=== PATIENT | female | born 1935 | race Caucasian/White ===

== ENCOUNTER 2016-06-28 20:30 | Inpatient (IN) | payer MEDICARE ==
[2016-06-28] MEDS ORDERED: Albuterol/Ipratropium Neb 3 ML NEB NEB ONE (20:40)
[2016-06-28] MEDS ORDERED: LORAZEPAM 2 MG/ML VIAL IV ONE (20:40)
[2016-06-28 21:03] LABS: ALLEN'S TEST PASS; BEb -2.1 (+/- 2); TCO2 27.4 MMOL/L (23-27)
[2016-06-28 21:04] LABS: ABG Draw Site Right Radial
[2016-06-28] MEDS ORDERED: DILTIAZEM 25 MG/5 ML VIAL IV ONE (21:19)
--- NOTE | 2016-06-28 21:19 | EDPRACDOC ---
- General Information Stated Complaint: RESP.DISTRESS Time Seen by Provider: 06/28/16 20:38 Home Medications: Home Medications Acetaminophen Ex Str Tablet [TYLENOL EXTRA STRENGTH Tablet] 500 mg PO Q4H PRN Donepezil HCl [Aricept] 20 mg PO HS 03/13/14 Mirtazapine [Remeron] 30 mg PO HS 03/13/14 Loperamide HCl [Imodium] 2 mg PO .UP TO 6 DOSES/24H PRN 08/26/14 Potassium Chloride [Klor-Con M20] 20 meq PO DAILY 08/26/14 Doxepin HCl [Sinequan] 50 mg PO HS 09/02/14 Furosemide [Lasix] 20 mg PO QAM 09/02/14 Tramadol HCl [Ultram] 50 mg PO BID PRN #60 tablet 09/05/14 Diltiazem HCl [Cardizem Cd] 120 mg PO DAILY 04/10/15 Fluticasone/Vilanterol [Breo Ellipta 100-25 Mcg INH] 1 puff INH DAILY 07/24/15 Trazodone HCl 50 mg PO HS 07/24/15 Artificial Tears 1 drop OU QID 11/13/15 Cetirizine HCl 10 mg PO DAILY 11/13/15 Glipizide 5 mg PO BID 11/13/15 Trolamine Salicylate/Aloe Vera [Aspercreme 10% Cream] 1 gm TOP TID PRN 11/13/15 Ascorbic Acid [Vitamin C] 500 mg PO DAILY 02/25/16 Atorvastatin Calcium [Lipitor] 10 mg PO HS 02/25/16 Calcium Polycarbophil 1,250 mg PO BID 02/25/16 Canagliflozin/Metformin HCl [Invokamet 50-500 mg Tablet] 1 tab PO BID 02/25/16 Cholecalciferol (Vitamin D3) [Vitamin D3] 2,000 unit PO DAILY 02/25/16 Ferrous Sulfate [Feosol] 325 mg PO BID 02/25/16 Fluoxetine HCl [Prozac] 10 mg PO 1800 02/25/16 Guaifenesin/D-Methorphan Hb/PE [Robafen Cf Liquid] 5 ml PO TID PRN 02/25/16 Liraglutide [Victoza 18 mg/3 ml Pen] 0.3 ml SQ DAILY@0800 02/25/16 Magnesium Hydroxide [Milk of Magnesia] 30 ml PO DAILY PRN 02/25/16 Metoprolol Tartrate [Lopressor] 50 mg PO BID 02/25/16 Omeprazole 20 mg PO DAILY 02/25/16 Equalactin 1,250 mg PO BID 06/28/16 Gabapentin 100 mg PO BID 06/28/16 Warfarin Sodium [Coumadin] 3.5 mg PO 1800 06/28/16 Allergies/Adverse Reactions: Allergies Allergy/AdvReac Type Severity Reaction Status Date / Time lisinopril [From Prinivil] Allergy Severe ANGIOEDEMA Verified 02/25/16 13:05 Sulfa (Sulfonamide Allergy Severe RASH Verified 02/25/16 13:05 Antibiotics) niacin Allergy See Verified 02/25/16 13:05 Comments - History of Present Illness Onset: 4 HOURS AGO Shortness of Breath: Severe Relevant History: Reports: COPD, Heart Failure (CHF) Cough: Reports: Non-productive SOB Worsens with: Reports: Nothing SOB Improves with: Reports: Other (NRB ) Other History: EMS ARRIVAL SO2 78% RA. PLACED ON NRB AND TRANSPORTED. HR 120-135 AF. ED Past Medical History - History Reviewed Yes Nurses notes reviewed and agree except as marked - Patient Medical History Neurological History: Reports: Dementia Cardiac History: Reports: Atrial Fibrillation, Hypertension, Congestive Heart Failure, Hypercholesterolemia, Valvular Heart Disease (Mild mitral regurgitation and mild aortic stenosis), Syncope. Denies: Cardiomyopathy (NL EF ) Respiratory History: Reports: COPD GI/ History: Reports: Renal Failure, Gastroesophageal Reflux, Diverticulosis Musculoskeletal History: Reports: Arthritis Psychological History: Reports: Depression. Denies: Substance Use Disorder Systemic History: Reports: Anemia, Diabetes (Type 2). Denies: Cancer Surgical History: Reports: Hysterectomy - Family Medical History Reports: Hypertension, Diabetes, Stroke (father), Cardiac Disorders (mother). Denies: Cancer - Social Medical History Smoking Status: Former smoker Social History: Denies: Substance Use Disorder EDM Review of Systems - Review of Systems ROS Negative Except as Marked: Yes All systems reviewed and were negative except as marked ROS Unobtainable: Yes Review of systems cannot be obtained due to the patient's medical condition - Physical Exam Constitutional: Alert, Restless, Other (PANIC, OBESE). negative: Well nourished , Well appearing Oriented to: Time, Person, Place Last recorded Vital Signs: Oxygen Pulse Oxygen Saturation O2 Device Oxygen Flow Rate Fraction of Inspired Oxygen ( FIO2) - HEENT Head: Normal Oropharynx: Normal Neck: Normal. negative: Limited ROM, Lymphadenopathy, Meningeal Signs - Respiratory/Cardiovascular Respiratory: Accessory Muscle Use, Rales, Tachypnea, Other (TRIPOD) Cardiovascular: Tachycardia, Irregular. negative: Diastolic murmur, Systolic murmur - GI Auscultation: Normal Palpation: Normal Tenderness: Non tender - Bladder: Normal - Musculoskeletal Back: Normal Extremities: Normal - Integumentary Skin: Warm, Diaphoretic - Neurologic Memory Impaired: Normal (GROSSLY NORMAL) Motor Function: Other (MOVES ALL 4 EXT) Mood Description: Anxious Thought: Coherent ED SOB MDM - Re-evaluation Re-evaluation 1 Re-evaluation Time: 21:22 (COMFORTABLE ON BIPAP) Re-evaluation 3 Re-evaluation Time: 22:42 (HR 76, DILT GTT OFF. PT COMFORTABLE, NL RESP EFFORT, MILD RALES) - Results Result Diagrams: 06/28/16 21:01 06/28/16 21:01 Results: Puncture Site Right radial 06/28/16 20:55 pH 7.270 pH UNITS (7.35-7.45) L 06/28/16 20:55 pCO2 56.0 mmHg (35-45) H 06/28/16 20:55 pO2 63.0 mmHg (80-100) L 06/28/16 20:55 HCO3 25.7 MMOL/L (22-26) 06/28/16 20:55 Total CO2 27.4 MMOL/L (23-27) H 06/28/16 20:55 Base Excess -2.1 (+/- 2) L 06/28/16 20:55 FiO2 % 100 06/28/16 20:55 Specimen Drawn By kaytr 06/28/16 20:55 Lab Results 06/28/16 20:55 Puncture Site Right radial pH 7.270 L pCO2 56.0 H pO2 63.0 L HCO3 25.7 Total CO2 27.4 H Base Excess -2.1 L FiO2 % 100 Specimen Drawn By kaytr - EKG EKG #1 EKG Time: 20:55 -: Yes EKG interpreted by me Rate: bpm: 131 Mcdowell: Normal Rhythm: Afib Block: None Hypertrophy: None ST: Nonsp - Diagnostic Imaging Chest Image interpreted by: Radiologist Diagnostic Imaging Comments: Patient Name: POP FISCHER LOC: ED : 1935 AGE: 80 Order Date:06/28/16 Date of Service:11/06 Report # [id number] Ord Physician: Dorothea Mcwilliams MD Exam # [id number] Emergency Physician: Dorothea Mcwilliams MD Exam(s): [id number] RAD/DG CHEST PORTABLE CLINICAL DATA: Acute onset of shortness of breath. Syncope. Sepsis. Initial encounter. EXAM: PORTABLE CHEST 1 VIEW COMPARISON: Chest radiograph performed 02/25/2016 FINDINGS: The lungs are well-aerated. Vascular congestion is noted. Increased interstitial markings raise concern for pulmonary edema, though pneumonia might have a similar appearance given the patient's symptoms. No definite pleural effusion or pneumothorax is seen. The cardiomediastinal silhouette is borderline enlarged. No acute osseous abnormalities are identified. IMPRESSION: Vascular congestion and borderline cardiomegaly. Increased interstitial markings raise concern for pulmonary edema, though pneumonia might have a similar appearance given the patient's symptoms. Electronically Signed By: Manan Yanes M.D. On: 06/28/2016 21:36 Electronically Signed By: Manan Yanes MD Electronically Signed Date/Time: Dictate Date/Time: 06/28/162134 Technologist: Marly Daigle Transcribed By: Fani Transcribed Date/Time: 06/28/162135 ED Critical Care Note - Critical Care Note Total Time (mins): 35 Comments: Due to the presence of and / or the risk of deterioration, my attendance to this patient required critical care time, including assessment/reassessment, documentation, ordering and interpreting ancillary studies, discussion with ED staff and consultants,patient and family, and excludes time spent on separately billable procedures. - Departure Disposition: Admit IP To This Hospital Final Diagnosis: Atrial fibrillation with rapid ventricular response, Acute respiratory failure with hypoxia and hypercarbia Instructions: A-fib (Atrial Fibrillation) (ED) Education/Counseling Given To: Patient, Family Member Education/Counseling Given Regarding: Diagnosis, Treatment Referrals: None,No Provider [NonStaff] - One Week Prescriptions: No Action Donepezil HCl [Aricept] 20 mg PO HS Acetaminophen Ex Str Tablet [TYLENOL EXTRA STRENGTH Tablet] 500 mg PO Q4H PRN PRN Reason: Pain Mirtazapine [Remeron] 30 mg PO HS Loperamide HCl [Imodium] 2 mg PO .UP TO 6 DOSES/24H PRN PRN Reason: Loose Stool Potassium Chloride [Klor-Con M20] 20 meq PO DAILY Doxepin HCl [Sinequan] 50 mg PO HS Furosemide [Lasix] 20 mg PO QAM Tramadol HCl [Ultram] 50 mg PO BID PRN #60 tablet PRN Reason: Pain Diltiazem HCl [Cardizem Cd] 120 mg PO DAILY Fluticasone/Vilanterol [Breo Ellipta 100-25 Mcg INH] 1 puff INH DAILY Trazodone HCl 50 mg PO HS Trolamine Salicylate/Aloe Vera [Aspercreme 10% Cream] 1 gm TOP TID PRN PRN Reason: NECK PAIN Cetirizine HCl 10 mg PO DAILY Artificial Tears 1 drop OU QID Glipizide 5 mg PO BID Magnesium Hydroxide [Milk of Magnesia] 30 ml PO DAILY PRN PRN Reason: Constipation Metoprolol Tartrate [Lopressor] 50 mg PO BID Canagliflozin/Metformin HCl [Invokamet 50-500 mg Tablet] 1 tab PO BID Ferrous Sulfate [Feosol] 325 mg PO BID Calcium Polycarbophil 1,250 mg PO BID Liraglutide [Victoza 18 mg/3 ml Pen] 0.3 ml SQ DAILY@0800 Cholecalciferol (Vitamin D3) [Vitamin D3] 2,000 unit PO DAILY Ascorbic Acid [Vitamin C] 500 mg PO DAILY Omeprazole 20 mg PO DAILY Fluoxetine HCl [Prozac] 10 mg PO 1800 Atorvastatin Calcium [Lipitor] 10 mg PO HS Guaifenesin/D-Methorphan Hb/PE [Robafen Cf Liquid] 5 ml PO TID PRN PRN Reason: Cough Gabapentin 100 mg PO BID Warfarin Sodium [Coumadin] 3.5 mg PO 1800 Equalactin 1,250 mg PO BID Forms: ED Discharge Instructions Decision to Admit Time: 22:41 Decision to admit date: 06/28/16 Decision to admit: from ED - Physician Consulted Hospitalist Time Called: 22:42 Provider Called: Kurtis Richardson Time Credit Review Manager Returned Call: 22:42
[2016-06-28 21:30] LABS: BLOOD UREA NITROGEN 18 MG/DL (7-17); CALCIUM 9.4 MG/DL (8.4-10.2); CALCULATED OSMOLALITY 275 MOs/Kg (270-290); CHLORIDE 103 mEq/L (98-107); CPK TOTAL WITH POSSIBLE MB 68 IU/L (30-134); GLUCOSE 176 mg/dL (70-99); SODIUM LEVEL 140 mEq/L (137-146); TOTAL PROTEIN 8.3 G/DL (6.3-8.2)
[2016-06-28 21:34] LABS: PT-INR 1.8
[2016-06-28 21:36] LABS: LEUKOCYTES/URINE NEG (NEGATIVE); NITRITE/URINE NEG (NEGATIVE); URINE OCCULT BLOOD NEG (NEG/TRACE)
[2016-06-28 21:38] LABS: AUTOMATED BASOPHIL 0.3 % (0-2); AUTOMATED EOSINOPHIL 1.4 % (0-5); AUTOMATED LYMPH 16.4 % (17-44); AUTOMATED MONOCYTE 7.6 % (3-10); AUTOMATED NEUTROPHIL 74.3 % (45-76); MPV 8.2 fL (7.4-10.4)
--- NOTE | 2016-06-28 21:38 | DIRPT ---
CLINICAL DATA: Acute onset of shortness of breath. Syncope. Sepsis. Initial encounter. EXAM: PORTABLE CHEST 1 VIEW COMPARISON: Chest radiograph performed 02/25/2016 FINDINGS: The lungs are well-aerated. Vascular congestion is noted. Increased interstitial markings raise concern for pulmonary edema, though pneumonia might have a similar appearance given the patient's symptoms. No definite pleural effusion or pneumothorax is seen. The cardiomediastinal silhouette is borderline enlarged. No acute osseous abnormalities are identified. IMPRESSION: Vascular congestion and borderline cardiomegaly. Increased interstitial markings raise concern for pulmonary edema, though pneumonia might have a similar appearance given the patient's symptoms. Electronically Signed By: Manan Yanes M.D. On: 06/28/2016 21:36
[2016-06-28] MEDS ORDERED: Diltiazem HCl 100 MG in D5W 100 ML IV SCH (22:00)
[2016-06-28] MEDS ORDERED: NITROGLYCERINE 2 % OINTMENT PACK TOP ONE (22:21)
[2016-06-28] MEDS ORDERED: [UNRECOGNIZED DRUG - OTHER] TOP PRN (22:57)
[2016-06-28] MEDS ORDERED: TROLAMINE SALICYLATE TOP PRN (22:57)
[2016-06-28] MEDS ORDERED: ALOE VERA TOP PRN (22:57)
[2016-06-28] MEDS ORDERED: ARTIFICIAL TEARS OPH SOLN 15 ML OU SCH (23:00)
[2016-06-28] MEDS ORDERED: ONDANSETRON HCL 4 MG/2 ML VIAL IV PRN (23:00)
[2016-06-28] MEDS ORDERED: ALBUTEROL 0.083% 3 ML NEB NEB PRN (23:01)
[2016-06-28] MEDS ORDERED: GLUCOSE (ORAL GEL) 15 GM TUBE PO PRN (23:01)
[2016-06-28] MEDS ORDERED: GLUCAGON 1 MG VIAL SQ PRN (23:01)
[2016-06-28] MEDS ORDERED: DEXTROSE 25 GM/50 ML PFS IV PRN (23:01)
--- NOTE | 2016-06-28 23:07 | HISTPHYS ---
- Chief Complaint Shortness of breath - History of Present Illness This is a 72-year-old female with history of Alzheimer's disease, atrial fibrillation, diabetes and heart failure who was being admitted to the hospital [facility] due to significant hypoxic respiratory failure. History is taken from the patient's daughter, as the patient is demented and somnolent at this time. Patient's daughter tells me that she has been short of breath for the last several days, though she constantly has complaints of chest pain, shortness of breath. This afternoon, she pulled the alarm at her assisted living facility complaining of shortness of breath, and difficulty catching her breath. Per the daughter who saw her when she 1st arrived at the emergency department, she was really gasping for air and going for air. She seems to have gained a small amount of fluid with some lower extremity edema over the last few days. Patient often complains of chest pain, is not very reliable but for the last few days has not been complaining of chest pain. S were the daughter knows, she has not had any chest pain, nausea, vomiting, fevers or chills, no abdominal pain complaints or changes in bowel or bladder habits. No sick contacts or changes in her medications. - Medical History Cardiac History: Reports: Atrial Fibrillation, Hypertension, Congestive Heart Failure, Hypercholesterolemia, Valvular Heart Disease (Mild mitral regurgitation and mild aortic stenosis), Syncope. Denies: Cardiomyopathy (NL EF ) Respiratory History: Reports: COPD GI/ History: Reports: Renal Failure, Gastroesophageal Reflux, Diverticulosis Musculoskeletal History: Reports: Arthritis Systemic History: Reports: Anemia, Diabetes (Type 2). Denies: Cancer Neurological History: Reports: Dementia Psychological History: Reports: Depression. Denies: Substance Use Disorder - Surgical History Reports: Hysterectomy - Medictions/Allergies Allergies lisinopril [From Prinivil] Allergy (Severe, Verified 02/25/16 13:05) ANGIOEDEMA Sulfa (Sulfonamide Antibiotics) Allergy (Severe, Verified 02/25/16 13:05) RASH niacin Allergy (Verified 02/25/16 13:05) See Comments per facility mar Home Medications Acetaminophen Ex Str Tablet [TYLENOL EXTRA STRENGTH Tablet] 500 mg PO Q4H PRN Donepezil HCl [Aricept] 20 mg PO HS 03/13/14 Mirtazapine [Remeron] 30 mg PO HS 03/13/14 Loperamide HCl [Imodium] 2 mg PO .UP TO 6 DOSES/24H PRN 08/26/14 Potassium Chloride [Klor-Con M20] 20 meq PO DAILY 08/26/14 Doxepin HCl [Sinequan] 50 mg PO HS 09/02/14 Furosemide [Lasix] 20 mg PO QAM 09/02/14 Tramadol HCl [Ultram] 50 mg PO BID PRN #60 tablet 09/05/14 Diltiazem HCl [Cardizem Cd] 120 mg PO DAILY 04/10/15 Fluticasone/Vilanterol [Breo Ellipta 100-25 Mcg INH] 1 puff INH DAILY 07/24/15 Trazodone HCl 50 mg PO HS 07/24/15 Artificial Tears 1 drop OU QID 11/13/15 Cetirizine HCl 10 mg PO DAILY 11/13/15 Glipizide 5 mg PO BID 11/13/15 Trolamine Salicylate/Aloe Vera [Aspercreme 10% Cream] 1 gm TOP TID PRN 11/13/15 Ascorbic Acid [Vitamin C] 500 mg PO DAILY 02/25/16 Atorvastatin Calcium [Lipitor] 10 mg PO HS 02/25/16 Calcium Polycarbophil 1,250 mg PO BID 02/25/16 Canagliflozin/Metformin HCl [Invokamet 50-500 mg Tablet] 1 tab PO BID 02/25/16 Cholecalciferol (Vitamin D3) [Vitamin D3] 2,000 unit PO DAILY 02/25/16 Ferrous Sulfate [Feosol] 325 mg PO BID 02/25/16 Fluoxetine HCl [Prozac] 10 mg PO 1800 02/25/16 Guaifenesin/D-Methorphan Hb/PE [Robafen Cf Liquid] 5 ml PO TID PRN 02/25/16 Liraglutide [Victoza 18 mg/3 ml Pen] 0.3 ml SQ DAILY@0800 02/25/16 Magnesium Hydroxide [Milk of Magnesia] 30 ml PO DAILY PRN 02/25/16 Metoprolol Tartrate [Lopressor] 50 mg PO BID 02/25/16 Omeprazole 20 mg PO DAILY 02/25/16 Equalactin 1,250 mg PO BID 06/28/16 Gabapentin 100 mg PO BID 06/28/16 Warfarin Sodium [Coumadin] 3.5 mg PO 1800 06/28/16 - Family History Reports: Hypertension, Diabetes, Stroke (father), Cardiac Disorders (mother). Denies: Cancer - Social History Smoking Status: Former smoker Social History: Denies: Substance Use Disorder - Review of Systems Yes Review of systems cannot be obtained due to the patient's medical condition - Physical Exam Vital Signs: Initial Vitals Temperature 98.9 F 06/28/16 20:30 Pulse Rate 123 H 06/28/16 20:30 Respiratory Rate 26 H 06/28/16 20:30 Blood Pressure 119/61 06/28/16 20:30 Pulse Oxygen Saturation 91 06/28/16 20:30 - Focused CV Perfusion Exam Vital Signs: Last Vital Signs Temp 98.9 F 06/28/16 20:30 Pulse 95 06/28/16 22:01 Resp 20 06/28/16 22:01 BP 117/72 06/28/16 22:01 Pulse Ox 96 06/28/16 22:01 - Lab Results Laboratory Tests 06/28/16 06/28/16 06/28/16 20:55 21:01 21:01 WBC 12.8 H Hgb 15.5 Hct 47.6 H Plt Count 217 INR pH 7.270 L pCO2 56.0 H pO2 63.0 L Potassium 4.3 BUN 18 H Creatinine 1.00 AST 40 H Troponin I < 0.01 [id number]-P-Taojkqvzbto Pept 2900 H 06/28/16 21:01 WBC Hgb Hct Plt Count INR 1.8 pH pCO2 pO2 Potassium BUN Creatinine AST Troponin I [id number] Pept - Diagnostic Findings Chest x-ray:Vascular congestion and borderline cardiomegaly. Increased interstitial markings raise concern for pulmonary edema, though pneumonia might have a similar appearance given the patient's symptoms. - Assessment (1) Acute respiratory failure with hypoxia and hypercarbia J96.01 - ACUTE RESPIRATORY FAILURE WITH HYPOXIA; J96.02 - ACUTE RESPIRATORY FAILURE WITH HYPERCAPNIA Acute Likely due to CHF exacerbation, treating as below. (2) Atrial fibrillation with rapid ventricular response I48.91 - UNSPECIFIED ATRIAL FIBRILLATION Acute Patient has a known history of atrial fibrillation, she is on pill diltiazem, as well as warfarin for anticoagulation. She was started on diltiazem drip, her rates are now under control but the drip was discontinued due to some hypotension. 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 and HS in the meantime. (4) Chronic anticoagulation Z79.01 - ALF (CURRENT) USE OF ANTICOAGULANTS Chronic (5) Chronic congestive heart failure with left ventricular diastolic dysfunction I50.32 - CHRONIC DIASTOLIC (CONGESTIVE) HEART FAILURE Chronic She seems to be in some acute heart failure, given the fact that she has significant shortness of breath, edema on the chest x-ray, elevated BNP and peripheral edema. Due to her hypotension, will need to be very cautious about diuresis, I have started her on IV Lasix low-dose twice daily, to start in the morning once her blood pressure stabilizes. She is currently hypotensive, I think this is an effect of the diltiazem. (6) Essential hypertension I10 - ESSENTIAL (PRIMARY) HYPERTENSION Chronic Continue medications and monitor, holding scheduled blood pressure medications at this time due to her hypotension. (7) Mild depression F32.0 - MAJOR DEPRESSIVE DISORDER, SINGLE EPISODE, MILD Chronic Stable. Plan: Continue current medical regimen. - Plan Elderly demented patient was admitted to the hospital due to shortness of breath , likely due to CHF exacerbation with fluid overload. Situation is also exacerbated by AFib with RVR. Rates are now in control, but her blood pressures are low. Will diurese in the morning, if her blood pressures are improved. Discussed at length with the daughter at the bedside.
[2016-06-29] MEDS: ALBUTEROL 0.083% 3 ML NEB NEB SCH ×3 (00:41→14:05)
[2016-06-29] MEDS ORDERED: Vaccine Screening Complete SCH (01:00)
[2016-06-29] MEDS: PANTOPRAZOLE 40 MG TAB PO SCH ×2 (05:04→05:45)
[2016-06-29] MEDS: REGULAR INSULIN 100 UNITS/ML - 3 ML VIAL SQ SCH ×4 (05:47→21:53)
[2016-06-29 06:20] LABS: MPV 8.2 fL (7.4-10.4)
[2016-06-29 06:41] LABS: BLOOD UREA NITROGEN 21 MG/DL (7-17); CALCIUM 9.2 MG/DL (8.4-10.2); CALCULATED OSMOLALITY 275 MOs/Kg (270-290); CHLORIDE 106 mEq/L (98-107); GLUCOSE 150 mg/dL (70-99); SODIUM LEVEL 140 mEq/L (137-146)
--- NOTE | 2016-06-29 07:24 | DIRPT ---
CLINICAL DATA: CHF. EXAM: PORTABLE CHEST 1 VIEW COMPARISON: 06/28/2016 . FINDINGS: Mediastinum and hilar structures normal. Cardiomegaly with normal pulmonary vascularity. Interim near complete clearing of bilateral pulmonary edema. Low lung volumes. No pleural effusion. No pneumothorax. IMPRESSION: Cardiomegaly with interim near complete clearing of pulmonary edema. Low lung volumes. Electronically Signed By: Robby Keene On: 06/29/2016 07:21
[2016-06-29] MEDS ORDERED: FUROSEMIDE 20 MG/2 ML VIAL IV SCH (08:00)
[2016-06-29] MEDS ORDERED: BUDESONIDE 0.5 MG NEB NEB SCH (08:00)
[2016-06-29] MEDS: ARTIFICIAL TEARS OPH SOLN 15 ML OU SCH ×4 (08:39→20:03)
[2016-06-29] MEDS: GABAPENTIN 100 MG CAP PO SCH ×2 (08:39→20:01)
[2016-06-29] MEDS: POLYCARBOPHIL 500 MG TAB PO SCH ×2 (08:40→20:02)
[2016-06-29] MEDS: DILTIAZEM HCL 120 MG CAPSULE.CR PO SCH (08:40)
[2016-06-29] MEDS: POTASSIUM CHLORIDE 20 MEQ TAB PO SCH ×2 (08:40→17:06)
[2016-06-29] MEDS ORDERED: MAGNESIUM HYDROXIDE 30 ML BOTTLE PO PRN (08:42)
[2016-06-29] MEDS ORDERED: LOPERAMIDE 2 MG CAP PO PRN (08:42)
--- NOTE | 2016-06-29 08:48 | GENMEDPROG ---
Subjective Note: Patient used her BiPAP most of the night. It was removed this morning and she is awake in using nasal cannula oxygen. She is able to tell me that she became ill during the night could get a breath and pulled her merging see cord at [facility]. Staff came evaluated her and activated EMS. Patient's daughter states that she has a history of congestive failure diagnosed 2 1/2 years ago she is treated by Dr. Leblanc. Daughter reports that daily weights are not performed at [facility]. They check weights monthly. Notes Reviewed: Yes: Events from last night noted and discussed with Clinical Staff Current Medication List: Reviewed Currently: Reports: Cough, SOB. Denies: Diarrhea, Nausea and Vomiting, Abdominal Pain, Ambulating DVT Prophylaxis: Yes - Physical Examination Vital Signs and I&O: Last Vital Signs Temp 97.9 F 06/29/16 03:00 Pulse 86 06/29/16 06:00 Resp 18 06/29/16 06:00 BP 126/80 06/29/16 06:00 Pulse Ox 96 06/29/16 06:00 Oxygen Pulse Oxygen Saturation 96 O2 Device Nasal Cannula Oxygen Flow Rate 2 Fraction of Inspired Oxygen ( 45 FIO2) Intake & Output 06/26/16 06/27/16 06/28/16 06/29/16 23:59 23:59 23:59 23:59 Intake Total 1 240 Output Total 250 Balance 1 -10 Patient's weight 85.502 kg General: Alert, Oriented x3, Mild distress, Weakness HEENT: Normal (Normocephalic, atraumatic;EOMI.Sclera white, Nares patent, without discharge or bleeding. No oropharyngeal lesions or erythema. Mucous membranes are dry.) Neck: Non-tender, Full range of motion, Normal Trachea alignment, Normal inspection (No cervical lymphadenopathy. No supraclavicular lymphadenopathy.), No Masses palpable, Supple Lymphatics: Normal (No lymph node swelling or pain.) Respiratory: Accessory Muscle Use, Rales, Tachypnea, Other (TRIPOD) Cardiovascular: No Gallops,Rubs/Murmurs, Irregular. negative: Regular rate and rhythm GI: Normal bowel sounds (normal active sounds), Soft (non-distended), Non tender , No hepatospenomegaly, No masses Extremities/Musculoskeletal: Normal pulses (DP pulses 2+ bilaterally), Edema ( Trace) Skin: Warm,Dry and Intact, No rashes, No significant lesion Neurological: Strength at 5/5 X4 ext (Motor 5/5 throughout.), Normal tone, Cranial nerves 3-12 NL ( 2-12 grossly intact.) Lab/DI/Studies Reviewed: Abnormal Lab Results 06/28/16 06/28/16 06/28/16 20:55 21:01 21:01 WBC 12.8 H Hct 47.6 H MCHC 32.6 L RDW 15.3 H Lymph % (Auto) 16.4 L Absolute Neuts (auto) 9.47 H PT pH 7.270 L pCO2 56.0 H pO2 63.0 L Total CO2 27.4 H Base Excess -2.1 L Anion Gap 18 H BUN 18 H Creatinine Estimated GFR (MDRD) 54 L Glucose 176 H POC Capillary Glucose Hemoglobin A1c AST 40 H Vxn-G-Fzokswmcohj Pept 2900 H Total Protein 8.3 H Urine Protein Urine Glucose (UA) Urine Yeast 06/28/16 06/28/16 06/28/16 21:01 21:01 21:20 WBC Hct MCHC RDW Lymph % (Auto) Absolute Neuts (auto) PT 18.1 H pH pCO2 pO2 Total CO2 Base Excess Anion Gap BUN Creatinine Estimated GFR (MDRD) Glucose POC Capillary Glucose Hemoglobin A1c 6.7 H AST Npx-L-Mmjxxnjjzjk Pept Total Protein Urine Protein 3+ H Urine Glucose (UA) 3+ H Urine Yeast Mod H 06/29/16 06/29/16 06/29/16 05:46 05:50 05:50 WBC Hct MCHC RDW 15.2 H Lymph % (Auto) Absolute Neuts (auto) PT pH pCO2 pO2 Total CO2 Base Excess Anion Gap BUN 21 H Creatinine 1.10 H Estimated GFR (MDRD) 48 L Glucose 150 H POC Capillary Glucose 141 H Hemoglobin A1c AST Svz-X-Yqofijpeffs Pept Total Protein Urine Protein Urine Glucose (UA) Urine Yeast - Assessment (1) Acute respiratory failure with hypoxia and hypercarbia Acute J96.01 - ACUTE RESPIRATORY FAILURE WITH HYPOXIA; J96.02 - ACUTE RESPIRATORY FAILURE WITH HYPERCAPNIA Comment/Plan: Likely due to CHF exacerbation. Patient has improved in BiPAP is able to come off today. Will continue to use at HS for at least the next 24-48 hours. Given patient's tenuous respiratory status she will stay in ICU today. (2) Atrial fibrillation with rapid ventricular response Acute I48.91 - UNSPECIFIED ATRIAL FIBRILLATION Comment/Plan: Diltiazem drip off due to hypotension oral diltiazem to be restarted today. Suspect rapid ventricular response due to congestive heart failure. 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 Continue a.c. and HS fingerstick blood glucoses. (4) Chronic congestive heart failure with left ventricular diastolic dysfunction Chronic I50.32 - CHRONIC DIASTOLIC (CONGESTIVE) HEART FAILURE Comment/Plan: Recent echocardiogram in February is as follows: 1. There is mild concentric left ventricular hypertrophy. 2. There is normal global left ventricular contractility. 3. Overall left ventricular systolic function is normal with, an EF between 65 - 70 %. 4. No regional wall motion abnormalities were noted. 5. Left atrium is severely dilated by volume. 6. Mild aortic stenosis with peak/mean pressure gradient of 17 / 9 mmHg, the aortic valve area by continuity equation is 1.41 cm2. 7. Hlid-bm-mkpkmpeb mitral regurgitation is present. Patient seems to have improved with some diuresis and BiPAP overnight. Lungs remain with crackles however. Dr. Leblanc to see the patient today. I have ordered the congestive heart failure management protocol. I believe the patient would benefit from significant teaching as well as the care staff at [facility]. (5) Essential hypertension Chronic I10 - ESSENTIAL (PRIMARY) HYPERTENSION Comment/Plan: Resume home blood pressure medications monitor closely (6) Mild depression Chronic F32.0 - MAJOR DEPRESSIVE DISORDER, SINGLE EPISODE, MILD Comment/Plan : Stable. Continue current medical regimen. (7) Chronic anticoagulation Chronic Z79.01 - CARE HOME (CURRENT) USE OF ANTICOAGULANTS - Plan Continue ICU care continue diuresis today. Start fluid restriction and congestive heart failure order set. Consult Dr. Leblanc. Plan for physical therapy in a.m. Disposition Plan: Hopefully back to [facility] once improved. Case Care Discussed with: Patient, Consultants (Dr. Leblanc), Family, Nursing Staff Education/Counseling Given To: Patient, Family Member Education/Counseling Given Regarding: Diagnosis, Treatment, Prognosis, Follow Up , Disposition Plan Total Time: 45 minutes
--- NOTE | 2016-06-29 08:51 | PCM.CARDCO ---
Consultation Date: 06/29/16 Requesting Physician: Rosalina Maddox President & Founder: David Leblanc Consult Reason: CHF - History of Present Illness Chief Complaint: Shortness of breath - Past Medical and Surgical History Cardiac History: Reports: Atrial Fibrillation, Hypertension, Congestive Heart Failure, Hypercholesterolemia, Valvular Heart Disease (Mild mitral regurgitation and mild aortic stenosis), Syncope. Denies: Cardiomyopathy (NL EF ) Respiratory History: Reports: COPD GI/ History: Reports: Renal Failure, Gastroesophageal Reflux, Diverticulosis Systemic History: Reports: Anemia, Diabetes (Type 2). Denies: Cancer Musculoskeletal History: Reports: Arthritis Psychological History: Reports: Depression. Denies: Substance Use Disorder Neurological History: Reports: Dementia Past Surgical History: Reports: Hysterectomy Allergies lisinopril [From Prinivil] Allergy (Severe, Verified 06/29/16 00:30) ANGIOEDEMA Sulfa (Sulfonamide Antibiotics) Allergy (Severe, Verified 06/29/16 00:30) RASH niacin Allergy (Verified 06/29/16 00:30) See Comments per facility mar Home Medications Acetaminophen Ex Str Tablet [TYLENOL EXTRA STRENGTH Tablet] 500 mg PO Q4H PRN Donepezil HCl [Aricept] 20 mg PO HS 03/13/14 Mirtazapine [Remeron] 30 mg PO HS 03/13/14 Loperamide HCl [Imodium] 2 mg PO .UP TO 6 DOSES/24H PRN 08/26/14 Potassium Chloride [Klor-Con M20] 20 meq PO DAILY 08/26/14 Doxepin HCl [Sinequan] 50 mg PO HS 09/02/14 Furosemide [Lasix] 20 mg PO QAM 09/02/14 Tramadol HCl [Ultram] 50 mg PO BID PRN #60 tablet 09/05/14 Diltiazem HCl [Cardizem Cd] 120 mg PO DAILY 04/10/15 Fluticasone/Vilanterol [Breo Ellipta 100-25 Mcg INH] 1 puff INH DAILY 07/24/15 Trazodone HCl 50 mg PO HS 07/24/15 Artificial Tears 1 drop OU QID 11/13/15 Cetirizine HCl 10 mg PO DAILY 11/13/15 Glipizide 5 mg PO BID 11/13/15 Trolamine Salicylate/Aloe Vera [Aspercreme 10% Cream] 1 gm TOP TID PRN 11/13/15 Ascorbic Acid [Vitamin C] 500 mg PO DAILY 02/25/16 Atorvastatin Calcium [Lipitor] 10 mg PO HS 02/25/16 Calcium Polycarbophil 1,250 mg PO BID 02/25/16 Canagliflozin/Metformin HCl [Invokamet 50-500 mg Tablet] 1 tab PO BID 02/25/16 Cholecalciferol (Vitamin D3) [Vitamin D3] 2,000 unit PO DAILY 02/25/16 Ferrous Sulfate [Feosol] 325 mg PO BID 02/25/16 Fluoxetine HCl [Prozac] 10 mg PO 1800 02/25/16 Guaifenesin/D-Methorphan Hb/PE [Robafen Cf Liquid] 5 ml PO TID PRN 02/25/16 Liraglutide [Victoza 18 mg/3 ml Pen] 0.3 ml SQ DAILY@0800 02/25/16 Magnesium Hydroxide [Milk of Magnesia] 30 ml PO DAILY PRN 02/25/16 Metoprolol Tartrate [Lopressor] 50 mg PO BID 02/25/16 Omeprazole 20 mg PO DAILY 02/25/16 Equalactin 1,250 mg PO BID 06/28/16 Gabapentin 100 mg PO BID 06/28/16 Warfarin Sodium [Coumadin] 3.5 mg PO 1800 06/28/16 - Social History Travel Outside of [place] in the Last 3 Months?: No Smoking Status: Former smoker Social History: Denies: Substance Use Disorder - Family History Reports: Hypertension, Diabetes, Stroke (father), Cardiac Disorders (mother). Denies: Cancer - Physical Exam Constitutional: Alert, Restless, Other (PANIC, OBESE). negative: Well nourished , Well appearing Oriented to: Time, Person, Place Exam: Last Vital Signs Temp 97.9 F 06/29/16 03:00 Pulse 86 06/29/16 06:00 Resp 18 06/29/16 06:00 BP 126/80 06/29/16 06:00 Pulse Ox 96 06/29/16 06:00 Intake & Output 06/28/16 06/29/16 06/29/16 23:59 07:59 15:59 Intake Total 1 240 Output Total 250 Balance 1 -10 Patient's weight 188 lb 8 oz - HEENT Head: Normal Oropharynx: Normal - Respiratory/Cardiovascular Respiratory: Accessory Muscle Use, Rales, Tachypnea, Other (TRIPOD) - GI Auscultation: Normal Palpation: Normal Tenderness: Non tender - Musculoskeletal Back: Normal Extremities: Normal - Integumentary Skin: Warm, Diaphoretic - Neurologic Memory Impaired: Normal (GROSSLY NORMAL) Mood Description: Anxious Thought: Coherent - Lab Results Laboratory Tests 06/28/16 06/28/16 06/28/16 20:55 21:01 21:01 WBC 12.8 H Hgb 15.5 INR pH 7.270 L pCO2 56.0 H pO2 63.0 L Potassium BUN Creatinine Estimated GFR (MDRD) Sbi-P-Ijwayfqewqb Pept 2900 H 06/28/16 06/29/16 06/29/16 21:01 05:50 05:50 WBC 7.9 Hgb 13.8 D INR 1.8 pH pCO2 pO2 Potassium 4.4 BUN 21 H Creatinine 1.10 H Estimated GFR (MDRD) 48 L Nol-D-Pygjbaounig Pept - Diagnostic Findings CXR 1: IMPRESSION: Vascular congestion and borderline cardiomegaly. Increased interstitial markings raise concern for pulmonary edema, though pneumonia might have a similar appearance given the patient's symptoms. CXR 2:IMPRESSION: Cardiomegaly with interim near complete clearing of pulmonary edema. Low lung volumes. EMS ARRIVAL SO2 78% RA. PLACED ON NRB AND TRANSPORTED. HR 120-135 AF.
[2016-06-29] MEDS ORDERED: Pharmacy Order Set Alert SCH (09:00)
[2016-06-29] MEDS ORDERED: Non-Formulary Medication ITEM (Omeprazole [Omeprazole] 20 MG) PO SCH (09:00)
[2016-06-29] MEDS ORDERED: WARFARIN EDUCATION DOCUMENTATION ONE (09:00)
[2016-06-29] MEDS ORDERED: Non-Formulary Medication ITEM (Ferrous Sulfate [Feosol] 325 MG) PO SCH (09:00)
[2016-06-29] MEDS ORDERED: [UNRECOGNIZED DRUG - OTHER] INH SCH (09:00)
[2016-06-29] MEDS ORDERED: EQUALACTIN PO SCH (09:00)
[2016-06-29] MEDS ORDERED: LIRAGLUTIDE 18 MG/3ML (0.6 MG/0.1 ML) PEN SQ SCH (09:00)
[2016-06-29] MEDS ORDERED: Non-Formulary Medication ITEM (Cholecalciferol (Vitamin D3) [Vitamin D3] 2,000 UNIT) PO SCH (09:00)
--- NOTE | 2016-06-29 09:02 | PCM.CARDCO ---
Consultation Date: 06/29/16 Requesting Physician: Rosalina Maddox Accounting Auditor: David Leblanc Consult Reason: CHF - History of Present Illness She is a patient I have seen in my office , her medical problems include chronic atrial fibrillation with a chads 2 Vasc score of 6, hypertensive heart disease without heart failure, chronic anticoagulation and dementia. Echocardiogram showed normal EF% mild aortic stenosis. Other problems include type 2 diabetes esophageal reflux hyperlipidemia mild mitral regurgitation and peripheral vascular disease. She presents the hospital with increasing shortness of breath and is found to be in decompensated heart failure volume overloaded. She is eating food with other individuals in a skilled facility in tells me she had salt to her food. She was taking maintenance diuretic. Chief Complaint: Shortness of breath - Past Medical and Surgical History Cardiac History: Reports: Atrial Fibrillation, Hypertension, Congestive Heart Failure, Hypercholesterolemia, Valvular Heart Disease (Mild mitral regurgitation and mild aortic stenosis), Syncope. Denies: Cardiomyopathy (NL EF ) Respiratory History: Reports: COPD GI/ History: Reports: Renal Failure, Gastroesophageal Reflux, Diverticulosis Systemic History: Reports: Anemia, Diabetes (Type 2). Denies: Cancer Musculoskeletal History: Reports: Arthritis Psychological History: Reports: Depression. Denies: Substance Use Disorder Neurological History: Reports: Dementia Past Surgical History: Reports: Hysterectomy Allergies lisinopril [From Prinivil] Allergy (Severe, Verified 06/29/16 00:30) ANGIOEDEMA Sulfa (Sulfonamide Antibiotics) Allergy (Severe, Verified 06/29/16 00:30) RASH niacin Allergy (Verified 06/29/16 00:30) See Comments per facility mar Home Medications Acetaminophen Ex Str Tablet [TYLENOL EXTRA STRENGTH Tablet] 500 mg PO Q4H PRN Donepezil HCl [Aricept] 20 mg PO HS 03/13/14 Mirtazapine [Remeron] 30 mg PO HS 03/13/14 Loperamide HCl [Imodium] 2 mg PO .UP TO 6 DOSES/24H PRN 08/26/14 Potassium Chloride [Klor-Con M20] 20 meq PO DAILY 08/26/14 Doxepin HCl [Sinequan] 50 mg PO HS 09/02/14 Furosemide [Lasix] 20 mg PO QAM 09/02/14 Tramadol HCl [Ultram] 50 mg PO BID PRN #60 tablet 09/05/14 Diltiazem HCl [Cardizem Cd] 120 mg PO DAILY 04/10/15 Fluticasone/Vilanterol [Breo Ellipta 100-25 Mcg INH] 1 puff INH DAILY 07/24/15 Trazodone HCl 50 mg PO HS 07/24/15 Artificial Tears 1 drop OU QID 11/13/15 Cetirizine HCl 10 mg PO DAILY 11/13/15 Glipizide 5 mg PO BID 11/13/15 Trolamine Salicylate/Aloe Vera [Aspercreme 10% Cream] 1 gm TOP TID PRN 11/13/15 Ascorbic Acid [Vitamin C] 500 mg PO DAILY 02/25/16 Atorvastatin Calcium [Lipitor] 10 mg PO HS 02/25/16 Calcium Polycarbophil 1,250 mg PO BID 02/25/16 Canagliflozin/Metformin HCl [Invokamet 50-500 mg Tablet] 1 tab PO BID 02/25/16 Cholecalciferol (Vitamin D3) [Vitamin D3] 2,000 unit PO DAILY 02/25/16 Ferrous Sulfate [Feosol] 325 mg PO BID 02/25/16 Fluoxetine HCl [Prozac] 10 mg PO 1800 02/25/16 Guaifenesin/D-Methorphan Hb/PE [Robafen Cf Liquid] 5 ml PO TID PRN 02/25/16 Liraglutide [Victoza 18 mg/3 ml Pen] 0.3 ml SQ DAILY@0800 02/25/16 Magnesium Hydroxide [Milk of Magnesia] 30 ml PO DAILY PRN 02/25/16 Metoprolol Tartrate [Lopressor] 50 mg PO BID 02/25/16 Omeprazole 20 mg PO DAILY 02/25/16 Equalactin 1,250 mg PO BID 06/28/16 Gabapentin 100 mg PO BID 06/28/16 Warfarin Sodium [Coumadin] 3.5 mg PO 1800 06/28/16 - Social History Travel Outside of [place] in the Last 3 Months?: No Smoking Status: Former smoker Social History: Denies: Other Substance Use - Family History Reports: Hypertension, Diabetes, Stroke (father), Cardiac Disorders (mother). Denies: Cancer - Review of Systems Yes All systems reviewed and were negative except as marked - Respiratory Shortness of Breath - Musculoskeletal Musculoskeletal:: Swelling - Physical Exam Constitutional: No apparent distress (in bed at 30 degree), Alert, Other (She is in bed at 30 and not short of breath. The nursing staff tells me she has had a marked diuresis that is not documented.). negative: Well nourished, Well appearing Oriented to: Time, Person, Place Exam: Last Vital Signs Temp 97.9 F 06/29/16 03:00 Pulse 86 06/29/16 06:00 Resp 18 06/29/16 06:00 BP 126/80 06/29/16 06:00 Pulse Ox 96 06/29/16 06:00 Intake & Output 06/28/16 06/29/16 06/29/16 23:59 07:59 15:59 Intake Total 1 240 Output Total 250 Balance 1 -10 Patient's weight 188 lb 8 oz - HEENT Head: Normal (no NVD bruit or thyromegaly) Oropharynx: Normal - Respiratory/Cardiovascular Respiratory: Diminished, Rales (bibasilar) Cardiovascular: Irregular. negative: Systolic murmur, Gallop/S3 - GI Auscultation: Normal Palpation: Normal Tenderness: Non tender - Musculoskeletal Back: Normal Extremities: Normal, Edema (2+ pretibial. 3+ presacral edema), Femoral Pulse, Pedal Edema, Pedal Pulse, Radial Pulse. negative: Calf Tenderness, Clubbing, Cyanosis - Integumentary Skin: Warm, Dry. negative: Clammy, Diaphoretic, Pale, Mottling, Petechiae Lymphatics: Normal (No lymph node swelling or pain.) - Neurologic Memory Impaired: Normal (GROSSLY NORMAL) Mood Description: Anxious Thought: Coherent - Lab Results Echo 03/07/16:CONCLUSIONS 1. There is mild concentric left ventricular hypertrophy. 2. There is normal global left ventricular contractility. 3. Overall left ventricular systolic function is normal with, an EF between 65 - 70 %. 4. No regional wall motion abnormalities were noted. 5. Left atrium is severely dilated by volume. 6. Mild aortic stenosis with peak/mean pressure gradient of 17 / 9 mmHg, the aortic valve area by continuity equation is 1.41 cm2. 7. Ysic-ot-rojsnhnr mitral regurgitation is present. Laboratory Tests 06/28/16 06/28/16 06/29/16 20:55 21:01 05:50 Hgb Hct pH 7.270 L pCO2 56.0 H pO2 63.0 L Potassium 4.4 Creatinine 1.10 H Estimated GFR (MDRD) 48 L Qjt-O-Xplejygwsda Pept 2900 H 06/29/16 05:50 Hgb 13.8 D Hct 41.8 pH pCO2 pO2 Potassium Creatinine Estimated GFR (MDRD) Qwl-J-Msdayupkbpd Pept Cardiolite 03/01/16: IMPRESSION: There is no evidence of ischemia or significant scar. Inferoseptal and diaphragmatic attenuation is noted. Normal wall motion and contractility . Left ventricle ejection fraction is 71%. - Diagnostic Findings CXR 1: IMPRESSION: Vascular congestion and borderline cardiomegaly. Increased interstitial markings raise concern for pulmonary edema, though pneumonia might have a similar appearance given the patient's symptoms. CXR 2:IMPRESSION: Cardiomegaly with interim near complete clearing of pulmonary edema. Low lung volumes. - Assessment/Plan (1) Heart failure I50.9 - HEART FAILURE, UNSPECIFIED Chronic Present on Admission: Yes diastolic acute on chronic I50.33 - Acute on chronic diastolic (congestive ) heart failure Comment: I suspect the problem here is volume overloaded related to dietary sodium intake. She has marked edema in requires diuresis until clear and require higher dose of outpatient diuretic with heart failure maintenance program. (2) Hypertensive heart disease with CHF I11.0 - HYPERTENSIVE HEART DISEASE WITH HEART FAILURE Acute Comment: Stable of additional antihypertensive therapy is needed combined Vasa dilator isosorbide and hydralazine would be appropriate. (3) Chronic anticoagulation Z79.01 - SECURITY OPERATIONS ENGINEER (CURRENT) USE OF ANTICOAGULANTS Chronic Comment: Stable continue her anticoagulant (4) Chronic atrial fibrillation I48.2 - CHRONIC ATRIAL FIBRILLATION Chronic Comment: Stable rate controlled continue her calcium channel daya (5) CKD (chronic kidney disease) stage 3, GFR 30-59 ml/min N18.3 - CHRONIC KIDNEY DISEASE, STAGE 3 (MODERATE) Acute Comment: Stable she require serial evaluation renal function during diuresis. Case Care Discussed with: Patient, Nursing Staff
[2016-06-29] MEDS ORDERED: FUROSEMIDE 20 MG/2 ML VIAL IV ONE (10:00)
[2016-06-29] MEDS ORDERED: FUROSEMIDE 40 MG/4 ML VIAL IV SCH (10:00)
[2016-06-29] MEDS: FERROUS SULFATE 324 MG TAB PO SCH ×2 (10:36→17:06)
[2016-06-29] MEDS: CHOLECALCIFEROL 1000 UNITS TAB PO SCH (10:36)
[2016-06-29] MEDS: ASCORBIC ACID 500 MG TAB PO SCH (10:37)
[2016-06-29] MEDS: GLIPIZIDE 5 MG TAB PO SCH ×2 (10:37→17:06)
[2016-06-29] MEDS: METOPROLOL TARTRATE 50 MG TAB PO SCH ×2 (10:38→20:01)
--- NOTE | 2016-06-29 11:03 | HISTPHYS ---
- Chief Complaint Shortness of breath - History of Present Illness This is a 72-year-old female with history of Alzheimer's disease, atrial fibrillation, diabetes and heart failure who was being admitted to the hospital [facility] due to significant hypoxic respiratory failure. History is taken from the patient's daughter, as the patient is demented and somnolent at this time. Patient's daughter tells me that she has been short of breath for the last several days, though she constantly has complaints of chest pain, shortness of breath. This afternoon, she pulled the alarm at her assisted living facility complaining of shortness of breath, and difficulty catching her breath. Per the daughter who saw her when she 1st arrived at the emergency department, she was really gasping for air and going for air. She seems to have gained a small amount of fluid with some lower extremity edema over the last few days. Patient often complains of chest pain, is not very reliable but for the last few days has not been complaining of chest pain. As far as the daughter knows, she has not had any chest pain, nausea, vomiting, fevers or chills, no abdominal pain complaints or changes in bowel or bladder habits. No sick contacts or changes in her medications. - Medical History Cardiac History: Reports: Atrial Fibrillation, Hypertension, Congestive Heart Failure, Hypercholesterolemia, Valvular Heart Disease (Mild mitral regurgitation and mild aortic stenosis), Syncope. Denies: Cardiomyopathy (NL EF ) Respiratory History: Reports: COPD GI/ History: Reports: Renal Failure, Gastroesophageal Reflux, Diverticulosis Musculoskeletal History: Reports: Arthritis Systemic History: Reports: Anemia, Diabetes (Type 2). Denies: Cancer Neurological History: Reports: Dementia Psychological History: Reports: Depression. Denies: Substance Use Disorder - Surgical History Reports: Hysterectomy - Medictions/Allergies Allergies lisinopril [From Prinivil] Allergy (Severe, Verified 02/25/16 13:05) ANGIOEDEMA Sulfa (Sulfonamide Antibiotics) Allergy (Severe, Verified 02/25/16 13:05) RASH niacin Allergy (Verified 02/25/16 13:05) See Comments per facility mar Home Medications Acetaminophen Ex Str Tablet [TYLENOL EXTRA STRENGTH Tablet] 500 mg PO Q4H PRN Donepezil HCl [Aricept] 20 mg PO HS 03/13/14 Mirtazapine [Remeron] 30 mg PO HS 03/13/14 Loperamide HCl [Imodium] 2 mg PO .UP TO 6 DOSES/24H PRN 08/26/14 Potassium Chloride [Klor-Con M20] 20 meq PO DAILY 08/26/14 Doxepin HCl [Sinequan] 50 mg PO HS 09/02/14 Furosemide [Lasix] 20 mg PO QAM 09/02/14 Tramadol HCl [Ultram] 50 mg PO BID PRN #60 tablet 09/05/14 Diltiazem HCl [Cardizem Cd] 120 mg PO DAILY 04/10/15 Fluticasone/Vilanterol [Breo Ellipta 100-25 Mcg INH] 1 puff INH DAILY 07/24/15 Trazodone HCl 50 mg PO HS 07/24/15 Artificial Tears 1 drop OU QID 11/13/15 Cetirizine HCl 10 mg PO DAILY 11/13/15 Glipizide 5 mg PO BID 11/13/15 Trolamine Salicylate/Aloe Vera [Aspercreme 10% Cream] 1 gm TOP TID PRN 11/13/15 Ascorbic Acid [Vitamin C] 500 mg PO DAILY 02/25/16 Atorvastatin Calcium [Lipitor] 10 mg PO HS 02/25/16 Calcium Polycarbophil 1,250 mg PO BID 02/25/16 Canagliflozin/Metformin HCl [Invokamet 50-500 mg Tablet] 1 tab PO BID 02/25/16 Cholecalciferol (Vitamin D3) [Vitamin D3] 2,000 unit PO DAILY 02/25/16 Ferrous Sulfate [Feosol] 325 mg PO BID 02/25/16 Fluoxetine HCl [Prozac] 10 mg PO 1800 02/25/16 Guaifenesin/D-Methorphan Hb/PE [Robafen Cf Liquid] 5 ml PO TID PRN 02/25/16 Liraglutide [Victoza 18 mg/3 ml Pen] 0.3 ml SQ DAILY@0800 02/25/16 Magnesium Hydroxide [Milk of Magnesia] 30 ml PO DAILY PRN 02/25/16 Metoprolol Tartrate [Lopressor] 50 mg PO BID 02/25/16 Omeprazole 20 mg PO DAILY 02/25/16 Equalactin 1,250 mg PO BID 06/28/16 Gabapentin 100 mg PO BID 06/28/16 Warfarin Sodium [Coumadin] 3.5 mg PO 1800 06/28/16 - Family History Reports: Hypertension, Diabetes, Stroke (father), Cardiac Disorders (mother). Denies: Cancer - Social History Smoking Status: Former smoker Social History: Denies: Substance Use Disorder - Review of Systems Yes Review of systems cannot be obtained due to the patient's medical condition - Physical Exam Vital Signs: Initial Vitals Temperature 98.9 F 06/28/16 20:30 Pulse Rate 123 H 06/28/16 20:30 Respiratory Rate 26 H 06/28/16 20:30 Blood Pressure 119/61 06/28/16 20:30 Pulse Oxygen Saturation 91 06/28/16 20:30 - Focused CV Perfusion Exam Vital Signs: Last Vital Signs Temp 98.9 F 06/28/16 20:30 Pulse 95 06/28/16 22:01 Resp 20 06/28/16 22:01 BP 117/72 06/28/16 22:01 Pulse Ox 96 06/28/16 22:01 - Lab Results Laboratory Tests 06/28/16 06/28/16 06/28/16 20:55 21:01 21:01 WBC 12.8 H Hgb 15.5 Hct 47.6 H Plt Count 217 INR pH 7.270 L pCO2 56.0 H pO2 63.0 L Potassium 4.3 BUN 18 H Creatinine 1.00 AST 40 H Troponin I < 0.01 Gzu-L-Tehjexuactk Pept 2900 H 06/28/16 21:01 WBC Hgb Hct Plt Count INR 1.8 pH pCO2 pO2 Potassium BUN Creatinine AST Troponin I Zah-U-Gkfbrrougvl Pept - Diagnostic Findings Chest x-ray:Vascular congestion and borderline cardiomegaly. Increased interstitial markings raise concern for pulmonary edema, though pneumonia might have a similar appearance given the patient's symptoms. - Assessment (1) Acute respiratory failure with hypoxia and hypercarbia J96.01 - ACUTE RESPIRATORY FAILURE WITH HYPOXIA; J96.02 - ACUTE RESPIRATORY FAILURE WITH HYPERCAPNIA Acute Likely due to CHF exacerbation, treating as below. (2) Atrial fibrillation with rapid ventricular response I48.91 - UNSPECIFIED ATRIAL FIBRILLATION Acute Patient has a known history of atrial fibrillation, she is on pill diltiazem, as well as warfarin for anticoagulation. She was started on diltiazem drip, her rates are now under control but the drip was discontinued due to some hypotension. 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 and HS in the meantime. 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 Due to her hypotension, will need to be very cautious about diuresis, I have started her on IV Lasix low-dose twice daily, to start in the morning once her blood pressure stabilizes. She is currently hypotensive, I think this is an effect of the diltiazem. (6) Essential hypertension I10 - ESSENTIAL (PRIMARY) HYPERTENSION Chronic Continue medications and monitor, holding scheduled blood pressure medications at this time due to her hypotension. (7) Mild depression F32.0 - MAJOR DEPRESSIVE DISORDER, SINGLE EPISODE, MILD Chronic Stable. Plan: Continue current medical regimen. - Plan Elderly demented patient was admitted to the hospital due to shortness of breath , likely due to CHF exacerbation with fluid overload. Situation is also exacerbated by AFib with RVR. Rates are now in control, but her blood pressures are low. Will diurese in the morning, if her blood pressures are improved. Discussed at length with the daughter at the bedside. <Electronically signed by Kurtis Richardson MD> 06/28/16 [id number] IAN
--- NOTE | 2016-06-29 11:20 | CAPUECHO ---
INDICATION: HEART FAILURE HEIGHT: 165.1 cm (5 ft 5.0 in) WEIGHT: 78.0 kg (172.0 lbs) BP: 116/58 BSA: 1.515167 m MEASUREMENTS 2D RVIDd: 3.1 cm LVOT Diam: 1.8 cm LA Diam: 4.8 cm EF Biplane: 64.87 % LAESV MOD A4C: 59.1 ml LAESV MOD A2C: 65.6 ml LAESV Index (A-L): 37.09 ml/m M-MODE IVSd: 1.2 cm LVIDd: 4.3 cm LVPWd: 1.2 cm LVIDs: 2.6 cm EF(Teich): 70 % Ao Diam: 2.8 cm LA Diam: 4.9 cm DOPPLER MV E Mohan: 1.61 m/s MV A Mohan: 0.01 m/s MV PHT: 73.23 ms MVA By PHT: 3.00 cm LVOT Vmax: 1.30 m/s AV Vmax: 2.11 m/s EZIO Vmax, Pt: 1.61 cm AV Vmax: 2.06 m/s TR Vmax: 2.90 m/s TR maxP mmHg RVSP: 56.20 mmHg FINDINGS ------- Procedure:2D images, m-mode, color and spectral Doppler were obtained and reviewed. ECG rhythm:Atrial fibrillation. Study quality:This was a technically adequate study to TDS. Left Ventricle:The left ventricular size is normal. There is mild concentric left ventricular hype rtrophy. There is normal global left ventricular contractility. Overall left ventricular systoli c function is normal with, an EF between 65 - 70 %. No regional wall motion abnormalities were not ed. Right Ventricle:The right ventricle is normal in size and function. Left Atrium:The left atrium is moderately dilated. Right Atrium:The right atrium is normal in size and function. Aortic Valve:Aortic valve is trileaflet and is moderately thickened. There is no evidence of aorti c regurgitation. There is mild aortic stenosis present. Peak/mean gradient across the valve is 1 9mmHg/ 11mmHg, EZIO 1.66 cm2. Mitral Valve:The mitral valve leaflets are moderately thickened. Mild mitral annular calcification present. Mild mitral regurgitation is present. Tricuspid Valve:The tricuspid valve appears structurally normal. Dugo-op-eszbhkjx tricuspid regurg itation present. There is mild to moderate pulmonary hypertension. The right ventricular systoli c pressure, as measured by Doppler, is 56mmHg. Pulmonic Valve:The pulmonic valve was not well visualized. Aorta:The aortic root, ascending aorta and aortic arch somewhat TDS. IVC:The inferior vena cava is dilated with poor inspiratory collapse which is consistent with estima tiera right atrial pressure of 20 mmHg. Pericardium:The pericardium is normal. There is no pericardial effusion. CONCLUSIONS 1. Atrial fibrillation. 2. There is normal global left ventricular contractility. 3. Overall left ventricular systolic function is normal with, an EF between 65 - 70 %. 4. No regional wall motion abnormalities were noted. 5. The left atrium is moderately dilated. 6. There is mild aortic stenosis present. 7. Mild mitral regurgitation is present. 8. There is mild to moderate pulmonary hypertension. Electronically Signed By: David Leblanc MD, [facility] Electronically Signed On: 11:17:07
[2016-06-29] MEDS: FUROSEMIDE 40 MG/4 ML VIAL IV SCH (16:28)
[2016-06-29] MEDS: This patient is receiving warfarin therapy SCH (17:05)
[2016-06-29] MEDS: FLUOXETINE 10 MG CAP PO SCH (17:06)
[2016-06-29] MEDS: MetFORMIN 500 MG IMMED RELEASE TAB PO SCH (17:07)
[2016-06-29] MEDS ORDERED: WARFARIN 1 MG TAB PO SCH (18:00)
[2016-06-29] MEDS: DOXEPIN 25 MG CAP PO SCH (20:01)
[2016-06-29] MEDS: MIRTAZAPINE 15 MG TAB PO SCH (20:01)
[2016-06-29] MEDS: TRAZODONE 50 MG TAB PO SCH (20:01)
[2016-06-29] MEDS: ATORVASTATIN 10 MG TAB PO SCH (20:02)
[2016-06-29] MEDS: DONEPEZIL HCL 10 MG TAB PO SCH (20:02)
[2016-06-29] MEDS: TRAMADOL HCL 50 MG TAB PO PRN (20:02)
[2016-06-29] MEDS ORDERED: CHLORHEXIDINE (HIBICLENS) 4 OZ BOTTLE TOP SCH (21:00)
[2016-06-29] MEDS ORDERED: Non-Formulary Medication ITEM (Mirtazapine [Remeron] 30 MG) PO SCH (21:00)
[2016-06-30 05:25] LABS: PT-INR 2.2
[2016-06-30 05:28] LABS: BLOOD UREA NITROGEN 32 MG/DL (7-17); CALCIUM 9.2 MG/DL (8.4-10.2); CALCULATED OSMOLALITY 276 MOs/Kg (270-290); CHLORIDE 101 mEq/L (98-107); GLUCOSE 151 mg/dL (70-99); SODIUM LEVEL 138 mEq/L (137-146)
[2016-06-30] MEDS: REGULAR INSULIN 100 UNITS/ML - 3 ML VIAL SQ SCH ×4 (06:07→20:15)
[2016-06-30] MEDS: PANTOPRAZOLE 40 MG TAB PO SCH (06:09)
[2016-06-30] MEDS: GLIPIZIDE 5 MG TAB PO SCH ×2 (06:09→16:41)
[2016-06-30] MEDS: MetFORMIN 500 MG IMMED RELEASE TAB PO SCH ×2 (06:09→16:42)
--- NOTE | 2016-06-30 07:48 | PCM.CARD ---
- Subjective Reason for visit: For heart failure with acute decompensation Current Assessment: No New Symptoms (Markedly improved out of bed in a chair in no longer short of breath although wearing nasal oxygen). negative: Cough, Chest Pain, Dizzines, Orthopnea, Palpitations, Shortness of Breath Vital Signs: Last Vital Signs Temp 97.8 F 06/30/16 07:00 Pulse 91 06/30/16 07:00 Resp 20 06/30/16 07:00 BP 93/58 L 06/30/16 07:00 Pulse Ox 90 L 06/30/16 07:00 Vital Signs Temp 97.8 F 06/30/16 07:00 Pulse 91 06/30/16 07:00 Resp 20 06/30/16 07:00 BP 93/58 L 06/30/16 07:00 Pulse Ox 90 L 06/30/16 07:00 Intake & Output 06/28/16 06/29/16 06/30/16 23:59 23:59 23:59 Intake Total 1 1085 Output Total 4250 375 Balance 1 -6154 -843 Patient's weight 172 lb 188 lb 8 oz 187 lb 1 oz Intake: IV Fluids 1 Cardizem 100 mg In D5w -- 1 Addvantage Bag 100 ml @ 5 MG/HR 5 mls/hr IV Q10H [facility] Rx#:[id number] Oral 1085 Feeding by examiner Ice 5 Chips Spoon Self-feeding Thin 200 Output: Urine 4250 375 Other: Elimination Method Toilet Toilet Number of Unmeasured 1 Voids Urine Color Yellow Yellow Number of Bowel Movements 2 Stool Size Large Stool Description Soft Loose Brown Wt Change in KG 2.892 kg loss 7.484 kg gained 0.652 kg loss Weight Change from 16 lb(s) gained 1 lb(s) loss Previous Weight Weight (Calculated 78.018 85.502 84.850 Kilograms) Selected Entries 06/30/16 08:00 Blood Pressure 97/81 L Respiratory: Diminished. negative: Rales Jugular Vein Distention: None Pulse Rhythm: Irregular EKG Rhythm: Atrial Fibrillation Heart Sounds: Murmur (05/28 confined to aortic area). negative: S1 & S2, S3 Edema Degree: 1+ (pretibial) Lab/DI Results Reviewed: Echo: CONCLUSIONS 1. Atrial fibrillation. 2. There is normal global left ventricular contractility. 3. Overall left ventricular systolic function is normal with, an EF between 65 - 70 %. 4. No regional wall motion abnormalities were noted. 5. The left atrium is moderately dilated. 6. There is mild aortic stenosis present. 7. Mild mitral regurgitation is present. 8. There is mild to moderate pulmonary hypertension. Laboratory Tests 06/29/16 06/30/16 05:50 05:00 Potassium 3.8 Creatinine 1.10 H 1.30 H - Assessment/Plan (1) Heart failure Chronic I50.9 - HEART FAILURE, UNSPECIFIED Present on Admission: Yes diastolic acute on chronic I50.33 - Acute on chronic diastolic (congestive ) heart failure Comment/Plan: improved, still with edema and continue her IV diuretic today. She will need to sodium restrict and will require higher dose of ambulatory diuretic at discharge. (2) Hypertensive heart disease with CHF Acute I11.0 - HYPERTENSIVE HEART DISEASE WITH HEART FAILURE Comment/Plan: BP was low this AM, recovered spontaneously., I will reduce her metoprolol. (3) Chronic anticoagulation Chronic Z79.01 - DETENTION (CURRENT) USE OF ANTICOAGULANTS Comment/Plan: Stable continue her current anticoagulant (4) Chronic atrial fibrillation Chronic I48.2 - CHRONIC ATRIAL FIBRILLATION Comment/Plan: stable, rate controlled and anticoagulated (5) CKD (chronic kidney disease) stage 3, GFR 30-59 ml/min Acute N18.3 - CHRONIC KIDNEY DISEASE, STAGE 3 (MODERATE) Comment/Plan: Stable follow her renal function closely with IV diuretic
[2016-06-30] MEDS: FUROSEMIDE 40 MG/4 ML VIAL IV SCH ×2 (08:29→16:49)
[2016-06-30] MEDS: ARTIFICIAL TEARS OPH SOLN 15 ML OU SCH ×4 (08:30→20:19)
[2016-06-30] MEDS: LIRAGLUTIDE 18 MG/3ML (0.6 MG/0.1 ML) PEN SQ SCH (08:32)
[2016-06-30] MEDS: POLYCARBOPHIL 500 MG TAB PO SCH ×2 (08:34→20:17)
[2016-06-30] MEDS: POTASSIUM CHLORIDE 20 MEQ TAB PO SCH ×3 (08:34→16:41)
[2016-06-30] MEDS: DILTIAZEM HCL 120 MG CAPSULE.CR PO SCH (08:36)
[2016-06-30] MEDS: GABAPENTIN 100 MG CAP PO SCH ×2 (08:37→20:17)
[2016-06-30] MEDS: METOPROLOL TARTRATE 50 MG TAB PO SCH (10:51)
[2016-06-30] MEDS: CHOLECALCIFEROL 1000 UNITS TAB PO SCH (11:56)
[2016-06-30] MEDS: FERROUS SULFATE 324 MG TAB PO SCH ×2 (11:56→16:41)
[2016-06-30] MEDS: ASCORBIC ACID 500 MG TAB PO SCH (11:56)
[2016-06-30] MEDS ORDERED: METOPROLOL TARTRATE 50 MG TAB PO SCH (12:23)
--- NOTE | 2016-06-30 12:27 | GENMEDPROG ---
Subjective Note: 80-year-old female admitted to our facility with congestive heart failure doing significantly better still somewhat short of breath today. Notes Reviewed: Yes: Events from last night noted and discussed with Clinical Staff Current Medication List: Reviewed Currently: Reports: Cough, RUSSELL, SOB. Denies: Diarrhea, Nausea and Vomiting, Abdominal Pain, Ambulating DVT Prophylaxis: Yes - Physical Examination Vital Signs and I&O: Last Vital Signs Temp 97.8 F 06/30/16 11:00 Pulse 111 06/30/16 12:00 Resp 20 06/30/16 12:00 BP 118/61 06/30/16 12:00 Pulse Ox 94 06/30/16 12:00 Oxygen Pulse Oxygen Saturation 94 O2 Device Room Air Oxygen Flow Rate 1 Fraction of Inspired Oxygen ( 40 FIO2) Intake & Output 06/27/16 06/28/16 06/29/16 06/30/16 23:59 23:59 23:59 23:59 Intake Total 1 1085 400 Output Total 4250 375 Balance 1 -3165 25 Patient's weight 85.502 kg 84.85 kg General: Alert HEENT: Normal Neck: Non-tender Lymphatics: Normal (No lymph node swelling or pain.) Respiratory: Diminished. negative: Rales Cardiovascular: Regular rate and rhythm (No bradycardia or tachycardia), Normal S1, No Gallops,Rubs/Murmurs, Normal S2, Good Pedal Pulses (DP pulses 2+ bilaterally) GI: Normal bowel sounds (normal active sounds), Soft (non-distended), Non tender , No hepatospenomegaly, No masses Extremities/Musculoskeletal: Normal pulses (DP pulses 2+ bilaterally) Skin: Warm,Dry and Intact, No rashes, No significant lesion Neurological: Strength at 5/5 X4 ext (Motor 5/5 throughout.), Normal tone, Cranial nerves 3-12 NL ( 2-12 grossly intact.) Psych/Mental Status: Appropriate, Normal Affect Lab/DI/Studies Reviewed: Laboratory Results - last 24 hr 06/29/16 06/29/16 06/30/16 17:03 21:52 05:00 WBC RBC Hgb Hct MCV MCH MCHC RDW Plt Count MPV PT INR Sodium 138 Potassium 3.8 Chloride 101 Carbon Dioxide 30 Anion Gap 11 BUN 32 H Creatinine 1.30 H Estimated GFR (MDRD) 40 L Glucose 151 H POC Capillary Glucose 180 H 135 H Calculated Osmolality 276 Calcium 9.2 Magnesium 1.90 06/30/16 06/30/16 06/30/16 05:00 05:00 06:02 WBC 6.0 RBC 4.62 Hgb 14.0 Hct 41.6 MCV 90 MCH 30.2 MCHC 33.5 RDW 15.0 H Plt Count 177 MPV 8.0 PT 22.4 H INR 2.2 Sodium Potassium Chloride Carbon Dioxide Anion Gap BUN Creatinine Estimated GFR (MDRD) Glucose POC Capillary Glucose 148 H Calculated Osmolality Calcium Magnesium 06/30/16 11:19 WBC RBC Hgb Hct MCV MCH MCHC RDW Plt Count MPV PT INR Sodium Potassium Chloride Carbon Dioxide Anion Gap BUN Creatinine Estimated GFR (MDRD) Glucose POC Capillary Glucose 110 H Calculated Osmolality Calcium Magnesium - Assessment (1) Acute respiratory failure with hypoxia and hypercarbia Acute J96.01 - ACUTE RESPIRATORY FAILURE WITH HYPOXIA; J96.02 - ACUTE RESPIRATORY FAILURE WITH HYPERCAPNIA Comment/Plan: Continue q.h.s. BiPAP (2) Atrial fibrillation with rapid ventricular response Acute I48.91 - UNSPECIFIED ATRIAL FIBRILLATION Comment/Plan: Heart rate improved went up a little bit this morning with the addition of Lasix. Patient' s blood pressure dropped yesterday so will cut her metoprolol in half. 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 Continue a.c. and HS fingerstick blood glucoses. (4) Chronic congestive heart failure with left ventricular diastolic dysfunction Chronic I50.32 - CHRONIC DIASTOLIC (CONGESTIVE) HEART FAILURE Comment/Plan: Recent echocardiogram in February is as follows: 1. There is mild concentric left ventricular hypertrophy. 2. There is normal global left ventricular contractility. 3. Overall left ventricular systolic function is normal with, an EF between 65 - 70 %. 4. No regional wall motion abnormalities were noted. 5. Left atrium is severely dilated by volume. 6. Mild aortic stenosis with peak/mean pressure gradient of 17 / 9 mmHg, the aortic valve area by continuity equation is 1.41 cm2. 7. Uleu-bi-acrqlsdb mitral regurgitation is present. Patient seems to have improved with some diuresis and BiPAP overnight. Lungs remain with crackles however. Dr. Leblanc to see the patient today. I have ordered the congestive heart failure management protocol. I believe the patient would benefit from significant teaching as well as the care staff at [facility]. (5) Essential hypertension Chronic I10 - ESSENTIAL (PRIMARY) HYPERTENSION Comment/Plan: Resume home blood pressure medications monitor closely (6) Mild depression Chronic F32.0 - MAJOR DEPRESSIVE DISORDER, SINGLE EPISODE, MILD Comment/Plan : Stable. Continue current medical regimen. (7) Chronic anticoagulation Chronic Z79.01 - HALFWAY (CURRENT) USE OF ANTICOAGULANTS - Plan Start physical therapy transfer to regular floor bed Disposition Plan: Hopefully back to [facility] once improved. Case Care Discussed with: Patient, Nursing Staff Education/Counseling Given To: Patient Education/Counseling Given Regarding: Diagnosis, Treatment, Prognosis, Disposition Plan Total Time: 50 minutes Critical Care: No Couseling Time (>50% in counseling/coordination): No
[2016-06-30] MEDS: FLUOXETINE 10 MG CAP PO SCH (16:41)
[2016-06-30] MEDS: This patient is receiving warfarin therapy SCH (16:42)
[2016-06-30] MEDS: MIRTAZAPINE 15 MG TAB PO SCH (20:16)
[2016-06-30] MEDS: ATORVASTATIN 10 MG TAB PO SCH (20:16)
[2016-06-30] MEDS: DONEPEZIL HCL 10 MG TAB PO SCH (20:17)
[2016-06-30] MEDS: DOXEPIN 25 MG CAP PO SCH (20:17)
[2016-06-30] MEDS: TRAZODONE 50 MG TAB PO SCH (20:18)
[2016-06-30] MEDS: METOPROLOL TARTRATE 25 MG TAB PO SCH (20:18)
[2016-07-01 05:16] LABS: MPV 8.4 fL (7.4-10.4)
[2016-07-01 05:26] LABS: PT-INR 2.3
[2016-07-01 05:28] LABS: BLOOD UREA NITROGEN 37 MG/DL (7-17); CALCIUM 9.7 MG/DL (8.4-10.2); CALCULATED OSMOLALITY 281 MOs/Kg (270-290); CHLORIDE 99 mEq/L (98-107); GLUCOSE 123 mg/dL (70-99); SODIUM LEVEL 141 mEq/L (137-146)
[2016-07-01 05:32] VITALS: BMI 30.3
[2016-07-01] MEDS: GLIPIZIDE 5 MG TAB PO SCH ×2 (05:58→17:36)
[2016-07-01] MEDS: MetFORMIN 500 MG IMMED RELEASE TAB PO SCH ×2 (05:58→17:36)
[2016-07-01] MEDS: PANTOPRAZOLE 40 MG TAB PO SCH (05:58)
[2016-07-01] MEDS: REGULAR INSULIN 100 UNITS/ML - 3 ML VIAL SQ SCH ×4 (05:59→21:22)
--- NOTE | 2016-07-01 07:49 | PCM.CARD ---
- Subjective Reason for visit: For heart failure Current Assessment: No New Symptoms. negative: Chest Pain, Dizzines, Orthopnea , Palpitations, Shortness of Breath (Supine in the bed off oxygen), Syncope Vital Signs: Last Vital Signs Temp 97.8 F 07/01/16 05:30 Pulse 126 H 07/01/16 06:47 Resp 18 07/01/16 05:30 BP 123/71 07/01/16 05:30 Pulse Ox 94 07/01/16 05:30 Vital Signs Temp 97.8 F 07/01/16 05:30 Pulse 126 H 07/01/16 06:47 Resp 18 07/01/16 05:30 BP 123/71 07/01/16 05:30 Pulse Ox 94 07/01/16 05:30 Intake & Output 06/29/16 06/30/16 07/01/16 23:59 23:59 23:59 Intake Total 1085 850 450 Output Total 4250 1175 Balance -3165 -325 450 Patient's weight 188 lb 8 oz 187 lb 1 oz 182 lb 1.6 oz Intake: Oral 1085 850 450 Feeding by examiner Ice 5 Chips Spoon Self-feeding Thin 200 Output: Urine 4250 1175 Other: Elimination Method Toilet Toilet Toilet Number of Unmeasured 1 1 1 Voids Urine Color Yellow Yellow Number of Bowel Movements 2 Stool Size Large Stool Description Soft Loose Brown Wt Change in KG 7.484 kg gained 0.652 kg loss 2.251 kg loss Weight Change from 16 lb(s) gained 1 lb(s) loss 4.9 lb(s) loss Previous Weight Weight (Calculated 85.502 84.850 82.599 Kilograms) Weight is down 6 lb Respiratory: Normal - CTA Jugular Vein Distention: None Pulse Rhythm: Irregular EKG Rhythm: Atrial Fibrillation Heart Sounds: Murmur (1/6 outflow murmur localized aortic area Her peripheral edema is resolved). 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
[2016-07-01] MEDS: LIRAGLUTIDE 18 MG/3ML (0.6 MG/0.1 ML) PEN SQ SCH (09:23)
[2016-07-01] MEDS: POTASSIUM CHLORIDE 20 MEQ TAB PO SCH ×3 (09:25→17:37)
[2016-07-01] MEDS: ARTIFICIAL TEARS OPH SOLN 15 ML OU SCH ×4 (09:26→19:37)
[2016-07-01] MEDS: DILTIAZEM HCL 120 MG CAPSULE.CR PO SCH (09:27)
[2016-07-01] MEDS: FUROSEMIDE 40 MG/4 ML VIAL IV SCH ×2 (09:27→17:35)
[2016-07-01] MEDS: METOPROLOL TARTRATE 25 MG TAB PO SCH ×2 (09:28→19:44)
[2016-07-01] MEDS: GABAPENTIN 100 MG CAP PO SCH ×2 (09:30→19:44)
[2016-07-01] MEDS: POLYCARBOPHIL 500 MG TAB PO SCH ×2 (09:30→19:37)
[2016-07-01] MEDS: FERROUS SULFATE 324 MG TAB PO SCH ×2 (13:04→17:38)
[2016-07-01] MEDS: CHOLECALCIFEROL 1000 UNITS TAB PO SCH (13:05)
[2016-07-01] MEDS: ASCORBIC ACID 500 MG TAB PO SCH (13:05)
--- NOTE | 2016-07-01 17:01 | PCM.DCS92 ---
- Final/Secondary Discharge Diagnosis (1) Acute respiratory failure with hypoxia and hypercarbia Acute J96.01 - ACUTE RESPIRATORY FAILURE WITH HYPOXIA; J96.02 - ACUTE RESPIRATORY FAILURE WITH HYPERCAPNIA Present on Admission: Yes Comment: Respiratory failure brought on by congestive heart failure. At this point it is significantly improved. She no longer requires BiPAP. (2) Chronic congestive heart failure with left ventricular diastolic dysfunction Acute I50.32 - CHRONIC DIASTOLIC (CONGESTIVE) HEART FAILURE Present on Admission: Yes Comment: Recent echocardiogram in February is as follows: 1. There is mild concentric left ventricular hypertrophy. 2. There is normal global left ventricular contractility. 3. Overall left ventricular systolic function is normal with, an EF between 65 - 70 %. 4. No regional wall motion abnormalities were noted. 5. Left atrium is severely dilated by volume. 6. Mild aortic stenosis with peak/mean pressure gradient of 17 / 9 mmHg, the aortic valve area by continuity equation is 1.41 cm2. 7. [id number] mitral regurgitation is present. Patient to return to assisted living facility congestive heart failure is the major discharge diagnosis. She require significant amounts of support at the assisted living facility including daily weights and charting weights reporting them to physician if necessary. She will be followed by our chronic disease management team (3) Atrial fibrillation with rapid ventricular response Chronic I48.91 - UNSPECIFIED ATRIAL FIBRILLATION Present on Admission: Yes Comment: Heart rate better controlled with current metoprolol management. 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 Continue a.c. and HS fingerstick blood glucoses. (5) Essential hypertension Chronic I10 - ESSENTIAL (PRIMARY) HYPERTENSION Present on Admission: Yes Comment: Resume home blood pressure medications monitor closely (6) Mild depression Chronic F32.0 - MAJOR DEPRESSIVE DISORDER, SINGLE EPISODE, MILD Present on Admission: Yes Comment: Stable. Continue current medical regimen. (7) Chronic anticoagulation Chronic Z79.01 - LONG-TERM (CURRENT) USE OF ANTICOAGULANTS Present on Admission: Yes Discharge Disposition: Assisted Living Facility Discharge Condition: Improved Cognitive Discharge Status: Cognitive deficits prevent decision making for safety. Fuctional Discharge Status: Walker Assistance, Ambulatory Dysfunction Forms: ED Discharge Instructions Physician Follow up/Referrals: Breanna Howe MD [Primary Care Provider] - Two Weeks David Leblanc MD [Staff Physician] - One Week Home Medications / New Prescriptions: New Metoprolol Tartrate [Lopressor] 12.5 mg PO BID #30 tablet Continue Donepezil HCl [Aricept] 20 mg PO HS Acetaminophen Ex Str Tablet [TYLENOL EXTRA STRENGTH Tablet] 500 mg PO Q4H PRN PRN Reason: Pain Mirtazapine [Remeron] 30 mg PO HS Loperamide HCl [Imodium] 2 mg PO .UP TO 6 DOSES/24H PRN PRN Reason: Loose Stool Potassium Chloride [Klor-Con M20] 20 meq PO DAILY Doxepin HCl [Sinequan] 50 mg PO HS Furosemide [Lasix] 20 mg PO QAM Tramadol HCl [Ultram] 50 mg PO BID PRN #60 tablet PRN Reason: Pain Diltiazem HCl [Cardizem Cd] 120 mg PO DAILY Fluticasone/Vilanterol [Breo Ellipta 100-25 Mcg INH] 1 puff INH DAILY Trazodone HCl 50 mg PO HS Trolamine Salicylate/Aloe Vera [Aspercreme 10% Cream] 1 gm TOP TID PRN PRN Reason: NECK PAIN Cetirizine HCl 10 mg PO DAILY Artificial Tears 1 drop OU QID Glipizide 5 mg PO BID Magnesium Hydroxide [Milk of Magnesia] 30 ml PO DAILY PRN PRN Reason: Constipation Canagliflozin/Metformin HCl [Invokamet 50-500 mg Tablet] 1 tab PO BID Ferrous Sulfate [Feosol] 325 mg PO BID Calcium Polycarbophil 1,250 mg PO BID Liraglutide [Victoza 18 mg/3 ml Pen] 0.3 ml SQ DAILY@0800 Cholecalciferol (Vitamin D3) [Vitamin D3] 2,000 unit PO DAILY Ascorbic Acid [Vitamin C] 500 mg PO DAILY Omeprazole 20 mg PO DAILY Fluoxetine HCl [Prozac] 10 mg PO 1800 Atorvastatin Calcium [Lipitor] 10 mg PO HS Guaifenesin/D-Methorphan Hb/PE [Robafen Cf Liquid] 5 ml PO TID PRN PRN Reason: Cough Gabapentin 100 mg PO BID Warfarin Sodium [Coumadin] 3.5 mg PO 1800 Equalactin 1,250 mg PO BID Memantine HCl [Namenda Xr] 28 mg PO QAM Discontinued Metoprolol Tartrate [Lopressor] 50 mg PO BID Discharge Home Medication List Acetaminophen Ex Str Tablet [TYLENOL EXTRA STRENGTH Tablet] 500 mg PO Q4H PRN [History Confirmed 06/28/16] Donepezil HCl [Aricept] 20 mg PO HS 03/13/14 [History Confirmed 06/28/16] Mirtazapine [Remeron] 30 mg PO HS 03/13/14 [History Confirmed 06/28/16] Loperamide HCl [Imodium] 2 mg PO .UP TO 6 DOSES/24H PRN 08/26/14 [History Confirmed 06/28/16] Potassium Chloride [Klor-Con M20] 20 meq PO DAILY 08/26/14 [History Confirmed ] Doxepin HCl [Sinequan] 50 mg PO HS 09/02/14 [History Confirmed 06/28/16] Furosemide [Lasix] 20 mg PO QAM 09/02/14 [History Confirmed 06/28/16] Tramadol HCl [Ultram] 50 mg PO BID PRN #60 tablet 09/05/14 [Rx Confirmed ] Diltiazem HCl [Cardizem Cd] 120 mg PO DAILY 04/10/15 [History Confirmed 06/28/16 ] Fluticasone/Vilanterol [Breo Ellipta 100-25 Mcg INH] 1 puff INH DAILY 07/24/15 [ History Confirmed 06/28/16] Trazodone HCl 50 mg PO HS 07/24/15 [History Confirmed 06/28/16] Artificial Tears 1 drop OU QID 11/13/15 [History Confirmed 06/28/16] Cetirizine HCl 10 mg PO DAILY 11/13/15 [History Confirmed 06/28/16] Glipizide 5 mg PO BID 11/13/15 [History Confirmed 06/28/16] Trolamine Salicylate/Aloe Vera [Aspercreme 10% Cream] 1 gm TOP TID PRN 11/13/15 [History Confirmed 06/28/16] Ascorbic Acid [Vitamin C] 500 mg PO DAILY 02/25/16 [History Confirmed 06/28/16] Atorvastatin Calcium [Lipitor] 10 mg PO HS 02/25/16 [History Confirmed 06/28/16] Calcium Polycarbophil 1,250 mg PO BID 02/25/16 [History Confirmed 06/28/16] Canagliflozin/Metformin HCl [Invokamet 50-500 mg Tablet] 1 tab PO BID 02/25/16 [ History Confirmed 06/28/16] Cholecalciferol (Vitamin D3) [Vitamin D3] 2,000 unit PO DAILY 02/25/16 [History Confirmed 06/28/16] Ferrous Sulfate [Feosol] 325 mg PO BID 02/25/16 [History Confirmed 06/28/16] Fluoxetine HCl [Prozac] 10 mg PO 1800 02/25/16 [History Confirmed 06/28/16] Guaifenesin/D-Methorphan Hb/PE [Robafen Cf Liquid] 5 ml PO TID PRN 02/25/16 [ History Confirmed 06/28/16] Liraglutide [Victoza 18 mg/3 ml Pen] 0.3 ml SQ DAILY@0800 02/25/16 [History Confirmed 06/28/16] Magnesium Hydroxide [Milk of Magnesia] 30 ml PO DAILY PRN 02/25/16 [History Confirmed 06/28/16] Omeprazole 20 mg PO DAILY 02/25/16 [History Confirmed 06/28/16] Equalactin 1,250 mg PO BID 06/28/16 [History Confirmed 06/28/16] Gabapentin 100 mg PO BID 06/28/16 [History Confirmed 06/28/16] Warfarin Sodium [Coumadin] 3.5 mg PO 1800 06/28/16 [History Confirmed 06/28/16] Memantine HCl [Namenda Xr] 28 mg PO QAM 06/29/16 [History Confirmed 06/29/16] Metoprolol Tartrate [Lopressor] 12.5 mg PO BID #30 tablet 07/01/16 [Rx] New Discharge Medications (Rx) Metoprolol Tartrate [Lopressor] 12.5 mg PO BID #30 tablet 07/01/16 [Rx] O2 Device: Room Air Diet at Discharge: Cardiac, Heart Healthy, Low Salt Activity: No Restrictions, As Tolerated Call Office For: Worsening Symptoms, Fever over 100.5, Weight Gain (see below) - DC Summary Notes HPI/Notes: She is a patient I have seen in my office , her medical problems include chronic atrial fibrillation with a chads 2 Vasc score of 6, hypertensive heart disease without heart failure, chronic anticoagulation and dementia. Echocardiogram showed normal EF% mild aortic stenosis. Other problems include type 2 diabetes esophageal reflux hyperlipidemia mild mitral regurgitation and peripheral vascular disease. She presents the hospital with increasing shortness of breath and is found to be in decompensated heart failure volume overloaded. She is eating food with other individuals in a skilled facility in tells me she had salt to her food. She was taking maintenance diuretic. Hospital Course Note:: Discharge summary on patient named POP FISCHER admitted to [facility] on 06/28/16 by Kurtis Richardson MD. Date of discharge is []. Pleasant 80-year-old female admitted with acute respiratory failure due to decompensated congestive heart failure which also set her atrial fibrillation into disarray. Patient required careful diuresis and did well initially in the ICU. She was later transferred to the floor and did well there as well. Her medications were adjusted. She is not a candidate for an MICHAEL-inhibitor due to angioedema. Her Lasix was restarted her warfarin was restarted and she continue to improve on beta-selena. At this point patient has reached maximum benefit of hospitalization. She is stable for discharge to assisted living facility. Total Time: 45 min Heart Failure DC - Education Provide the following patient education: Yes Cardiac Prudent Diet (Restricted Salt Intake), Yes Heart Failure(Continuity Care) - Discharge Medications Beta Selena Ordered: Home Medication Continued at Discharge Ejection Fraction (% or Description): 60-70% ACEI/ARB Contraindications: Angioedema Anticoagulant Ordered for Afib: Home Medication Continued at Discharge - Physical Exam Vital Signs: Last Vital Signs Temp 98.1 F 07/01/16 15:11 Pulse 86 07/01/16 16:00 Resp 20 07/01/16 15:11 BP 114/77 07/01/16 15:11 Pulse Ox 92 07/01/16 15:11 Oxygen Pulse Oxygen Saturation 92 O2 Device Room Air Oxygen Flow Rate 1 Fraction of Inspired Oxygen ( 40 FIO2) Constitutional: No apparent distress (in bed at 30 degree), Alert, Other (She is in bed at 30 and not short of breath. The nursing staff tells me she has had a marked diuresis that is not documented.). negative: Well nourished, Well appearing Oriented to: Time, Person, Place - HEENT Head: Normal (no NVD bruit or thyromegaly) Oropharynx: Normal - Respiratory/Cardiovascular Respiratory: Normal - CTA - GI Auscultation: Normal Palpation: Normal Tenderness: Non tender - Musculoskeletal Back: Normal Extremities: Normal, Edema (2+ pretibial. 3+ presacral edema), Femoral Pulse, Pedal Edema, Pedal Pulse, Radial Pulse. negative: Calf Tenderness, Clubbing, Cyanosis - Integumentary Lymphatics: Normal (No lymph node swelling or pain.) - Neurologic Memory Impaired: Normal (GROSSLY NORMAL) Mood Description: Anxious Thought: Coherent - Other Exam Other Exam Findings: Laboratory Results - last 24 hr 06/30/16 07/01/16 07/01/16 20:07 04:25 04:25 WBC 7.5 RBC 5.02 Hgb 15.0 Hct 45.3 MCV 90 MCH 29.9 MCHC 33.1 RDW 15.0 H Plt Count 206 MPV 8.4 PT INR Sodium 141 Potassium 3.9 Chloride 99 Carbon Dioxide 28 Anion Gap 18 H BUN 37 H Creatinine 1.30 H Estimated GFR (MDRD) 40 L Glucose 123 H POC Capillary Glucose 99 Calculated Osmolality 281 Calcium 9.7 07/01/16 07/01/16 07/01/16 04:25 05:21 11:06 WBC RBC Hgb Hct MCV MCH MCHC RDW Plt Count MPV PT 23.9 H INR 2.3 Sodium Potassium Chloride Carbon Dioxide Anion Gap BUN Creatinine Estimated GFR (MDRD) Glucose POC Capillary Glucose 125 H 146 H Calculated Osmolality Calcium 07/01/16 16:22 WBC RBC Hgb Hct MCV MCH MCHC RDW Plt Count MPV PT INR Sodium Potassium Chloride Carbon Dioxide Anion Gap BUN Creatinine Estimated GFR (MDRD) Glucose POC Capillary Glucose 157 H Calculated Osmolality Calcium
[2016-07-01] MEDS: This patient is receiving warfarin therapy SCH (17:34)
[2016-07-01] MEDS: FLUOXETINE 10 MG CAP PO SCH (17:39)
[2016-07-01] MEDS: TRAMADOL HCL 50 MG TAB PO PRN (19:36)
[2016-07-01] MEDS: DONEPEZIL HCL 10 MG TAB PO SCH (19:36)
[2016-07-01] MEDS: TRAZODONE 50 MG TAB PO SCH (19:37)
[2016-07-01] MEDS: MIRTAZAPINE 15 MG TAB PO SCH (19:43)
[2016-07-01] MEDS: DOXEPIN 25 MG CAP PO SCH (19:44)
[2016-07-01] MEDS: ATORVASTATIN 10 MG TAB PO SCH (19:44)
[2016-07-02 06:23] LABS: MPV 8.4 fL (7.4-10.4)
[2016-07-02] MEDS: GLIPIZIDE 5 MG TAB PO SCH (06:29)
[2016-07-02] MEDS: PANTOPRAZOLE 40 MG TAB PO SCH (06:30)
[2016-07-02] MEDS: MetFORMIN 500 MG IMMED RELEASE TAB PO SCH (06:30)
[2016-07-02] MEDS: REGULAR INSULIN 100 UNITS/ML - 3 ML VIAL SQ SCH (06:30)
[2016-07-02 06:38] LABS: PT-INR 2.4
[2016-07-02 06:54] LABS: BLOOD UREA NITROGEN 47 MG/DL (7-17); CALCIUM 9.8 MG/DL (8.4-10.2); CALCULATED OSMOLALITY 286 MOs/Kg (270-290); CHLORIDE 99 mEq/L (98-107); GLUCOSE 156 mg/dL (70-99); SODIUM LEVEL 141 mEq/L (137-146)
[2016-07-02] MEDS: FUROSEMIDE 40 MG/4 ML VIAL IV SCH (08:13)
[2016-07-02] MEDS: POTASSIUM CHLORIDE 20 MEQ TAB PO SCH (08:13)
[2016-07-02] MEDS: ARTIFICIAL TEARS OPH SOLN 15 ML OU SCH (08:13)
[2016-07-02] MEDS: LIRAGLUTIDE 18 MG/3ML (0.6 MG/0.1 ML) PEN SQ SCH (08:14)
[2016-07-02] MEDS: DILTIAZEM HCL 120 MG CAPSULE.CR PO SCH (08:15)
[2016-07-02] MEDS: POLYCARBOPHIL 500 MG TAB PO SCH (08:15)
[2016-07-02] MEDS: METOPROLOL TARTRATE 25 MG TAB PO SCH (08:16)
[2016-07-02] MEDS: GABAPENTIN 100 MG CAP PO SCH (08:17)
--- NOTE | 2016-07-02 09:37 | GENMEDPROG ---
Note 80-year-old female who was discharged yesterday. She has had no change in her condition and no change in her discharge plan however she was unable to leave due to assisted living facility requirements. She will discharge today with the same discharge plan discharge diagnoses and medications.
[2016-07-02 12:06] VITALS: BP 116/74; PULSE 110; TEMP 97.6
== END 2016-07-02 13:20 | disposition short-term general hospital (02) | DRG 291 ==
LOC: ED 20:30 → ICU 23:01 → UNDOADMIN 23:06 → ICU 23:06 → PCU 23:06
PROVIDERS: ADMIT Internal Medicine; ATTEND Hospitalist
PROC: 5A09357 Assistance with Respiratory Ventilation, Less than 24 Consecutive Hours, Continuous Positive Airway Pressure (ICD-10-PCS; principal; 2016-06-28)
PROC: 4A033R1 Measurement of Arterial Saturation, Peripheral, Percutaneous Approach (ICD-10-PCS; 2016-06-28)
PROC: B246ZZZ Ultrasonography of Right and Left Heart (ICD-10-PCS; 2016-06-29)
DX: I13.0 Hypertensive heart and chronic kidney disease with heart failure and stage 1 through stage 4 chronic kidney disease, or unspecified chronic kidney disease (principal); I50.33 Acute on chronic diastolic (congestive) heart failure; J96.01 Acute respiratory failure with hypoxia; J96.02 Acute respiratory failure with hypercapnia; F32.0 Major depressive disorder, single episode, mild; N18.3 Chronic kidney disease, stage 3 (moderate); E11.42 Type 2 diabetes mellitus with diabetic polyneuropathy; E11.65 Type 2 diabetes mellitus with hyperglycemia; I48.2 Chronic atrial fibrillation; K21.9 Gastro-esophageal reflux disease without esophagitis; J44.9 Chronic obstructive pulmonary disease, unspecified; G30.9 Alzheimer's disease, unspecified; F02.80 Dementia in other diseases classified elsewhere, unspecified severity, without behavioral disturbance, psychotic disturbance, mood disturbance, and anxiety; E78.00 Pure hypercholesterolemia, unspecified; M19.90 Unspecified osteoarthritis, unspecified site; I34.0 Nonrheumatic mitral (valve) insufficiency; I35.0 Nonrheumatic aortic (valve) stenosis; I73.9 Peripheral vascular disease, unspecified; Z90.710 Acquired absence of both cervix and uterus; Z88.2 Allergy status to sulfonamides; Z88.8 Allergy status to other drugs, medicaments and biological substances; Z79.84 Long term (current) use of oral hypoglycemic drugs; Z79.01 Long term (current) use of anticoagulants; Z79.51 Long term (current) use of inhaled steroids; Z75.1 Person awaiting admission to adequate facility elsewhere
CPT/HCPCS: 36415; 36600; 71010; 80048; 80053; 81001; 82043; 82550; 82803; 82962; 83036; 83605; 83735; 83880; 84484; 85025; 85027; 85610; 85730; 87040; 87086; 87641; 93005; 93306; 94640; 94660; 96365; 96372; 96375; 97161; 99284; G0237; J1940; J2060; J3490; J7060; J7620